=== PATIENT | female | born 1935 | race Caucasian/White ===

== ENCOUNTER 2022-02-07 06:22 | Emergency (ER) | payer OTHER ==
[2022-02-07 06:59] VITALS: BMI 25.8
[2022-02-07 09:21] LABS: BASO % 0.2 % (0-2.0); HEMATOCRIT 39.9 % (32.4-45.2); HEMOGLOBIN 12.8 GM/dL (10.7-15.3); LYMPH % 6.3 % (8-40); MCH 29.6 pg (25.7-33.7); MCHC 32.1 g/dl (32.0-36.0); MEAN CELL VOLUME 92.2 fl (80-96); MEAN PLT VOLUME 10.2 fl (7.5-11.1); MONO % 6.7 % (3.8-10.2); NEUT % 86.8 % (42.8-82.8); PLATELET COUNT 209 10^3/uL (134-434); RBC 4.33 M/mm3 (3.60-5.2); RDW 13.8 % (11.6-15.6)
[2022-02-07 09:41] LABS: CALCIUM 9.6 mg/dL (8.5-10.1)
[2022-02-07 09:42] LABS: ALBUMIN 3.1 g/dl (3.4-5.0); BLOOD UREA NITROGEN 16.8 mg/dL (7-18)
[2022-02-07 09:45] LABS: PHOSPHOROUS 3.4 mg/dL (2.5-4.9)
[2022-02-07 09:46] LABS: BILIRUBIN,TOTAL 0.5 mg/dL (0.2-1); TOT PROT 6.6 g/dl (6.4-8.2)
[2022-02-07] MEDS ORDERED: ONDANSETRON 4 MG/2 ML VIAL IVPUSH ONE (11:54)
[2022-02-07] MEDS ORDERED: POLYETHYLENE GLYCOL 3350 255 GM BTL PO ONE (11:56)
[2022-02-07] MEDS ORDERED: POLYETHYLENE GLYCOL (HEALTHYLAX) 3350 17 GM PACKET ONE (12:43)
[2022-02-07] MEDS ORDERED: POLYETHYLENE GLYCOL (HEALTHYLAX) 3350 17 GM PACKET PO ONE (13:30)
[2022-02-07 15:38] VITALS: BP 120/53; PULSE 67; RESP 16; TEMP 98.9
== END 2022-02-07 15:47 ==
LOC: JER 06:22
PROC: 3E033GC Introduction of Other Therapeutic Substance into Peripheral Vein, Percutaneous Approach (ICD-10-PCS; principal; 2022-02-07)
DX: K59.00 Constipation, unspecified (principal)
CPT/HCPCS: 0241U-QW; 36415; 71045-TC-FY; 74177-TC; 80053; 83690; 83735; 84100; 85025; 86850; 86900; 86901; 93005; 93010; 99285-25; Q9967